=== PATIENT | female | born 1995 | race Caucasian/White ===

== ENCOUNTER 2017-01-12 00:17 | Emergency (ER) | payer MEDICAID ==
[~2017-01-12] VITALS: Ht 160 cm; Wt 84.0 kg
[~2017-01-12 00:17] MED LIST: CLOT1CRE TOP; DICL50 PO; IBUP-232 PO; PRED20 PO; TRIA.1%T TOP
[2017-01-12 00:19] VITALS: BP 142/66; PULSE 78; RESP 18; TEMP 98.1; O2SAT 98
--- NOTE | 2017-01-12 01:37 | PD ---
HPI Chief Complaint: Musculoskeletal Complaint Time Seen by Provider: 01:34 Travel History International Travel<30 days: No Contact w/Intl Traveler<30days: No Traveled to known affect area: No History of Present Illness HPI 21-year-old white female presents to emergency department with complaints of chronic back pain as well as cramping all over. She states that she has had these symptoms now for over 2 months. She's been seen by her doctor regarding this. She is been told that she may have fibromyalgia. She states that the symptoms come and go. Symptoms are moderate. She denies any trauma. No recent illness. She denies any fever, chills, chest pain, shortness of breath, nausea, vomiting, abdominal pain, dysuria or rashes. She denies any current medications. There is no palliative or productive activity. Symptoms are intermittent. PFSH Past Medical History Narrative Medical Chronic back pain Diminished Hearing: No Kidney Stones: Yes Seizures: Yes Tetanus Vaccination: < 5 Years ?: Not LMP: 11/13/16 : 0 Para: 0 Miscarriage: 0 Ovarian Cysts: Yes Past Surgical History Appendectomy: Yes Genitourinary Surgery: Yes ("kidney stone surgery" not sure what they did ) Social History Alcohol Use: No Tobacco Use: Yes (1/2 pack per day) Substance Use: No Allergies-Medications (Allergen,Severity, Reaction): Coded Allergies: Flu Vaccine (Verified Adverse Reaction, Intermediate, Nausea/Vomiting, 10/18) Reported Meds & Prescriptions Reported Meds & Active Scripts Active No Active Prescriptions or Reported Medications Review of Systems Except as stated in HPI: all other systems reviewed are Neg Physical Exam Narrative GENERAL: Well-developed, well-nourished in no apparent distress. Nontoxic appearing. HEAD: Normocephalic, atraumatic. EYES: Pupils equal round and reactive. Extraocular motions intact. No scleral icterus. No injection or drainage. ENT: Nose clear. Throat without erythema, tonsillar hypertrophy or exudate. Uvula midline. Airway patent. NECK: Trachea midline. Supple, nontender, moves head freely. No central bony tenderness or spasm. CARDIOVASCULAR: Regular rate and rhythm without murmurs, gallops, or rubs. RESPIRATORY: Clear to auscultation. Breath sounds equal bilaterally. No wheezes , rales, or rhonchi. GASTROINTESTINAL: Abdomen soft, non-tender, nondistended. No hepato-splenomegaly , or palpable masses. No guarding. EXTREMITIES: No clubbing, cyanosis, or edema. No joint tenderness. BACK: Nontender without deformity. No flank tenderness. NEUROLOGICAL: Awake, alert and oriented x 3 .Cranial nerves grossly intact. Motor and sensory grossly within normal limits. Normal speech. Data Data Last Documented VS Vital Signs Date Time Temp Pulse Resp B/P Pulse Ox O2 Delivery O2 Flow Rate FiO2 01/12/17 00:19 98.1 78 18 142/66 98 Orders Basic Metabolic Panel (Bmp) (01/12/17 00:39) Cyclobenzaprine (Flexeril) (01/12/17 02:30) Labs Laboratory Tests Test 01/12/17 01:30 Sodium Level 141 MEQ/L Potassium Level 3.7 MEQ/L Chloride Level 107 MEQ/L Carbon Dioxide Level 26.3 MEQ/L Anion Gap 8 MEQ/L Blood Urea Nitrogen 7 MG/DL Creatinine 0.65 MG/DL Estimat Glomerular Filtration 115 ML/MIN Rate Random Glucose 96 MG/DL Calcium Level 9.1 MG/DL [facility] Medical Decision Making Medical Screen Exam Complete: Yes Emergency Medical Condition: Yes Medical Record Reviewed: Yes Interpretation(s) Laboratory Tests Test 01/12/17 01:30 Sodium Level 141 MEQ/L Potassium Level 3.7 MEQ/L Chloride Level 107 MEQ/L Carbon Dioxide Level 26.3 MEQ/L Anion Gap 8 MEQ/L Blood Urea Nitrogen 7 MG/DL Creatinine 0.65 MG/DL Estimat Glomerular Filtration 115 ML/MIN Rate Random Glucose 96 MG/DL Calcium Level 9.1 MG/DL Differential Diagnosis Differential diagnoses: Acute/chronic pain, muscle spasms, electrolyte abnormality, malingering, muscular dystrophy Narrative Course Chemistry is unremarkable. Electrolytes are normal. Patient given Flexeril 10 mg by mouth. This is muscle spasms Diagnosis Primary Impression: Muscle spasm Patient Instructions: General Instructions Additional Instructions: Rest. Heating pad. Flexeril Follow-up with a primary care doctor in one week. Return to the ER for emergencies. Med/Other Pt SpecificInfo: Prescription(s) given Scripts Cyclobenzaprine (Flexeril)10 Mg Tab10 Mg PO TID #21 TAB Prov:Cate Vail MD 01/12/17 Disposition: 01 DISCHARGE HOME Condition: Stable Yoav Rivera Jan 12, 2017 01:37
[2017-01-12 02:12] LABS: BICARBONATE 26.3 MEQ/L (21.0-32.0); POTASSIUM 3.7 MEQ/L (3.5-5.1)
[2017-01-12] MEDS ORDERED: CYCL1TAB29 PO (02:30)
[2017-01-12] MEDS ORDERED: CYCLOBENZAPRINE HCL 10 MG TAB PO ONE (02:30)
[2017-02-06] MEDS ORDERED: DICY20TA10 PO (09:17)
== END 2017-01-12 02:40 | disposition home or self-care (01) ==
LOC: NEPB 00:17
DX: M62.830 Muscle spasm of back (principal); F17.210 Nicotine dependence, cigarettes, uncomplicated; Z87.442 Personal history of urinary calculi
CPT/HCPCS: 80048; 99283